=== PATIENT | male | born 1985 | race American Indian/Alaskan Native ===

== ENCOUNTER 2016-08-24 10:47 | Inpatient (IN) | payer OTHER ==
--- NOTE | 2016-08-24 11:17 | Emergency Department Report ---
Stated Complaint: CHEST PAIN LT ARM PAIN/HEADACHES/PRESSURE LT LEG Time Seen by Provider: 08/24/16 11:15 - HPI History of Present Illness: seen at [facility] for the same recently he reports l sided numbness and tingling; as well as sharp shooting pain also vague co epigastric pain neuro intact cn intact no pronator drift denies drugs or etoh no cp on exam vss. nad - Exam Vital Signs: Vital Signs 08/24/16 11:06 Temperature 98.1 F Pulse Rate 87 Respiratory 16 Rate Blood Pressure 134/89 O2 Sat by Pulse 97 Oximetry MSE screening note: Focused history and physical exam performed. Due to findings the following was ordered: ED Medical Decision Making - Lab Data Result diagrams: 08/24/16 11:06 08/24/16 11:40 ED Disposition for MSE Condition: Stable
[2016-08-24 11:51] LABS: Basophils % (Auto) 0.5 % (0.0-1.8); Eosinophils % (Auto) 4.6 % (0.0-4.3); Hematocrit 50.9 % (35.5-45.6); Hemoglobin 17.2 gm/dl (11.8-15.2); Mean Corpuscular HGB Conc 34 % (32-34); Mean Corpuscular Hemoglobin 30 pg (28-32); Mean Corpuscular Volume 89 fl (84-94); Platelet Count 221 K/mm3 (140-440); Red Blood Count 5.71 M/mm3 (3.65-5.03); Red Cell Distribution Width 13.5 % (13.2-15.2); White Blood Count 7.7 K/mm3 (4.5-11.0)
[2016-08-24 11:59] LABS: INR 1.12 (0.87-1.13)
[2016-08-24 12:00] LABS: Partial Thromboplastin Time 30.5 Sec. (24.2-36.6)
[2016-08-24 12:09] LABS: Alanine Aminotransferase 58 units/L (7-56); Albumin 4.2 g/dL (3.9-5); Albumin/Globulin Ratio 1.4 %; Alkaline Phosphatase 56 units/L (35-129); Anion Gap 16 mmol/L; BUN/Creatinine Ratio 9.09; Blood Urea Nitrogen 10 mg/dL (9-20); Calcium 8.9 mg/dL (8.4-10.2); Carbon Dioxide 26 mmol/L (22-30); Chloride 100.6 mmol/L (98-107); Glucose 96 mg/dL (75-100); Potassium 4.3 mmol/L (3.6-5.0); Sodium 138 mmol/L (137-145); Total Protein 7.3 g/dL (6.3-8.2)
--- NOTE | 2016-08-24 12:12 | XRay Report ---
ROUTINE CHEST, TWO VIEWS: HISTORY: chest pain. The trachea, heart, mediastinal contour, lung thomson and bony thorax are unremarkable. IMPRESSION: Unremarkable chest x-ray.
[2016-08-24] MEDS ORDERED: MORPHINE IV ONE (22:11)
[2016-08-24] MEDS ORDERED: NITRO-BID 2% TP ONE (22:11)
[2016-08-24] MEDS ORDERED: ZOFRAN IV ONE (22:11)
--- NOTE | 2016-08-24 22:20 | Emergency Department Report ---
HPI - General Chief Complaint: Chest Pain Time Seen by Provider: 08/24/16 22:01 - [facility] HPI: Room 26 The patient is a 31-year-old male presenting with a chief complaint of chest pain. The patient states his symptoms began 5 days ago with intermittent sharp substernal chest pain associated with pain in his left upper extremity as well as numbness in the left upper and lower extremity. The patient states all of his symptoms come together. Patient denies shortness of breath, nausea/ vomiting or diaphoresis. The patient states she is also had an intermittent headache. Patient currently gives his pain a score of 6-7/10. Patient states she's never had a stress test or cardiac catheterization Location: [see above] Duration: Intermittent 5 days Quality: Sharp Severity: 6-7/10 Modifying factors: [see above] Context: [see above] Mode of transportation: Unknown ED Past Medical Hx - Past Medical History Previous Medical History?: Yes Hx Asthma: Yes - Surgical History Past Surgical History?: Yes Additional Surgical History: Abdominal hernia, Polyp removed from nose - Family History Family history: no significant - Social History Smoking Status: Never Smoker Substance Use Type: None (denies illicit drug use), Alcohol (occasional) - Medications Home Medications: Home Medications Medication Instructions Recorded Confirmed Last Taken Type ALBUTEROL Inhaler [ProAir HFA 2 puff IH QID PRN #1 inha 08/02/13 Unknown Rx Inhaler] predniSONE [Deltasone] 50 mg PO QDAY #5 tab 08/02/13 Unknown Rx ED Review of Systems ROS: Stated complaint: CHEST PAIN LT ARM PAIN/HEADACHES/PRESSURE LT LEG Other details as noted in HPI Comment: All other systems reviewed and negative Constitutional: denies: chills, fever Eyes: denies: eye pain, eye discharge, vision change ENT: denies: ear pain, throat pain Respiratory: denies: cough, shortness of breath, wheezing Cardiovascular: chest pain Endocrine: no symptoms reported Gastrointestinal: denies: abdominal pain, nausea, diarrhea Genitourinary: denies: urgency, dysuria Musculoskeletal: denies: back pain, joint swelling, arthralgia Skin: denies: rash, lesions Neurological: headache, paresthesias Psychiatric: denies: anxiety, depression Hematological/Lymphatic: denies: easy bleeding, easy bruising Physical Exam - Physical Exam Vital Signs: Vital Signs 08/24/16 08/24/1608/24/17 11:06 20:44 20:51 Temperature 98.1 F Pulse Rate 87 65 73 Respiratory 16 17 20 Rate Blood Pressure 134/89 O2 Sat by Pulse 97 98 Oximetry 08/24/16 08/24/16 08/24/16 21:00 21:11 21:12 Temperature Pulse Rate 70 67 Respiratory 20 20 20 Rate Blood Pressure 129/76 129/76 O2 Sat by Pulse 98 97 97 Oximetry 08/24/16 21:21 Temperature Pulse Rate 78 Respiratory 15 Rate Blood Pressure 130/85 O2 Sat by Pulse 98 Oximetry Physical Exam: GENERAL: The patient is well-developed well-nourished male lying on stretcher not appearing to be in acute distress. [] HEENT: Normocephalic. Atraumatic. Extraocular motions are intact. Patient has moist mucous membranes. NECK: Supple. No meningitic signs are noted. Trachea midline CHEST/LUNGS: Clear to auscultation. There is no respiratory distress noted. HEART/CARDIOVASCULAR: Regular. There is no tachycardia. There is no gallop rub or murmur. ABDOMEN: Abdomen is soft, nontender. Patient has normal bowel sounds. There is no abdominal distention. SKIN: There is no rash. There is no edema. There is no diaphoresis. NEURO: The patient is awake, alert, and oriented. The patient is cooperative. The patient has no focal neurologic deficits. The patient has normal speech. Cranial nerves II through XII grossly intact, no drift. Normal sensation throughout MUSCULOSKELETAL: There is no evidence of acute injury. ED Course Vital Signs 08/24/16 08/24/16 08/24/16 11:06 20:44 20:51 Temperature 98.1 F Pulse Rate 87 65 73 Respiratory 16 17 20 Rate Blood Pressure 134/89 O2 Sat by Pulse 97 98 Oximetry 08/24/16 08/24/16 08/24/16 21:00 21:11 21:12 Temperature Pulse Rate 70 67 Respiratory 20 20 20 Rate Blood Pressure 129/76 129/76 O2 Sat by Pulse 98 97 97 Oximetry 08/24/16 21:21 Temperature Pulse Rate 78 Respiratory 15 Rate Blood Pressure 130/85 O2 Sat by Pulse 98 Oximetry ED Medical Decision Making - Lab Data Result diagrams: 08/24/16 11:06 08/24/16 11:40 Laboratory Tests 08/24/16 08/24/16 08/24/16 11:06 11:06 11:40 WBC 7.7 RBC 5.71 H Hgb 17.2 H Hct 50.9 H MCV 89 MCH 30 MCHC 34 RDW 13.5 Plt Count 221 Lymph % (Auto) 29.5 [place] % (Auto) 9.8 H Eos % (Auto) 4.6 H Baso % (Auto) 0.5 Lymph # 2.3 [place] # 0.8 Eos # 0.4 Baso # 0.0 Seg Neutrophils % 55.6 Seg Neutrophils # 4.3 PT 14.3 INR 1.12 APTT 30.5 Sodium 138 Potassium 4.3 Chloride 100.6 Carbon Dioxide 26 Anion Gap 16 BUN 10 Creatinine 1.1 Estimated GFR > 60 BUN/Creatinine Ratio 9.09 Glucose 96 Calcium 8.9 Total Bilirubin 0.50 AST 24 ALT 58 H Alkaline Phosphatase 56 Troponin T < 0.010 Total Protein 7.3 Albumin 4.2 Albumin/Globulin Ratio 1.4 08/24/16 17:46 WBC RBC Hgb Hct MCV MCH MCHC RDW Plt Count Lymph % (Auto) [place] % (Auto) Eos % (Auto) Baso % (Auto) Lymph # [place] # Eos # Baso # Seg Neutrophils % Seg Neutrophils # PT INR APTT Sodium Potassium Chloride Carbon Dioxide Anion Gap BUN Creatinine Estimated GFR BUN/Creatinine Ratio Glucose Calcium Total Bilirubin AST ALT Alkaline Phosphatase Troponin T < 0.010 Total Protein Albumin Albumin/Globulin Ratio - EKG Data -: EKG Interpreted by Me EKG shows normal: sinus rhythm Rate: normal - EKG Data When compared to previous EKG there are: changes noted 08/24/16 22:21 EKG #1 performed at 10:53 reveals normal sinus rhythm with essentially unchanged when compared to previous EKG dated 03/21/2010. EKG #2 performed at 17:35 now shows new biphasic T waves in leads V3, V4, V5. - Radiology Data Radiology results: report reviewed (CT head), image reviewed (chest x-ray, CT head) interpreted by me: Chest x-ray- no focal infiltrate, no pneumothorax CT head (read by radiologist) - chronic sinusitis. No acute intracranial abnormality - Differential Diagnosis ACS, TIA, ICH, anxiety Critical care attestation.: If time is entered above; I have spent that time in minutes in the direct care of this critically ill patient, excluding procedure time. ED Disposition Clinical Impression: Chest pain, T wave inversion in EKG, Left sided numbness Disposition: OP ADMIT IP TO THIS HOSP Is pt being admited?: Yes Does the pt Need Aspirin: Yes Condition: Fair Instructions: Chest Pain (ED) Referrals: PRIMARY CARE,MD [Primary Care Provider] - 3-5 Days Time of Disposition: 23:03 (hospitalist paged)
--- NOTE | 2016-08-24 22:44 | Cat Scan Report ---
FINAL REPORT PROCEDURE: CT HEAD/BRAIN WO CON TECHNIQUE: Computerized tomography of the head was performed without contrast material. HISTORY: headache left-sided numbness COMPARISON: No prior studies are available for comparison. FINDINGS: Skull and scalp: Normal. Paranasal sinuses: Mucosal thickening is noted involving bilateral ethmoid, bilateral sphenoid and right frontal sinuses. Bilateral maxillary sinuses also demonstrate mucosal thickening. Ventricles and subarachnoid spaces: Normal. Cerebrum: No evidence of hemorrhage, acute infarction or mass . Cerebellum and brainstem: No evidence of hemorrhage, acute infarction or mass. Vasculature: Normal. Comments: None. IMPRESSION: Chronic sinusitis No acute intracranial abnormality
[2016-08-24] MEDS ORDERED: ASPIRIN PO ONE (23:03)
[2016-08-25] MEDS ORDERED: NITROSTAT SL PRN (00:02)
[2016-08-25] MEDS ORDERED: MORPHINE IV PRN (00:06)
[2016-08-25] MEDS ORDERED: ZOFRAN IV PRN (00:07)
[2016-08-25] MEDS ORDERED: TYLENOL PO PRN (00:08)
--- NOTE | 2016-08-25 00:28 | History and Physical Report ---
History of Present Illness Date of examination: 08/25/16 Date of admission: 06/08 Chief complaint: Chief complaint is chest pain History of present illness: History of present illness, patient is a 31-year-old male who started having substernal and precordial chest pain going on for 5 days, pain was relieved with pain medications and was associated with headache or pain radiates to the left upper extremity with numbness in the left upper extremity and left lower extremity. There is no history of shortness of breath but no history of nausea vomiting, cough fever or chills Past History Past Medical History: GERD, other (ASTHMA) Past Surgical History: hernia repair (NOSE SURGERY), Other Social history: other (OCCASIONAL ALCOHOL INTAKE) Family history: no significant family history Medications and Allergies Allergies Allergy/AdvReac Type Severity Reaction Status Date / Time Penicillins Allergy Swelling Verified 08/02/13 20:13 Home Medications Medication Instructions Recorded Confirmed Last Taken Type ALBUTEROL Inhaler [ProAir HFA 2 puff IH QID PRN #1 inha 08/02/13 Unknown Rx Inhaler] predniSONE [Deltasone] 50 mg PO QDAY #5 tab 08/02/13 Unknown Rx Active Meds: Active Medications Acetaminophen (Tylenol) 650 mg PO Q4H PRN PRN Reason: For Pain/Fever/Headache Aspirin (Aspirin) 325 mg PO QDAY [facility] Heparin Sodium (Porcine) (Heparin) 5,000 unit SUB-Q Q12HR [facility] Morphine Sulfate (Morphine) 2 mg IV Q3H PRN PRN Reason: Pain, Moderate (4-6) Nitroglycerin (Nitrostat) 0.4 mg SL Q5M PRN PRN Reason: Chest Pain Nitroglycerin (Nitro-Bid 2%) 0.5 inch TP QIDNTG [facility] PRN Reason: Protocol Ondansetron HCl (Zofran) 4 mg IV Q6H PRN PRN Reason: Nausea And Vomiting Review of Systems Constitutional: no weight loss, no weight gain, no fever, no chills, no sweats, no night sweats, no anorexia, no fatigue, no weakness, no malaise, no lethargy, no chronic headaches, no poor appetite, no daytime sleepiness, no chronic pain Eyes: bilateral: other (NO BILATERAL EYE SYMPTOMS) Ears, nose, mouth and throat: no ear pain, no ear discharge, no tinnitis, no decreased hearing, no nose pain, no nasal congestion, no nasal discharge, no sinus pressure, no sinus pain, no bleeding gums, no dental pain, no mouth pain, no dysphagia, no hoarseness, no sore throat, no swelling in mouth, no swelling in throat, no odynophagia, no voice changes, no post-nasal drip, no headache, no vertigo, no pain front of neck, no neck fullness/pressure, no neck lump Cardiovascular: chest pain, no orthopnea, no palpitations, no rapid/irregular heart beat, no edema, no syncope, no lightheadedness, no shortness of breath, no dyspnea on exertion, no paroxysmal nocturnal dyspnea, no claudication, no phlebitis, no high blood pressure, no leg edema, no decreased exercise tolerance Respiratory: no cough with sputum, no excessive sputum, no hemoptysis, no shortness of breath, no congestion, no wheezing, no pleurisy, no pain, no pain on inspiration, no sleep apnea, no respiratory infections Gastrointestinal: no abdominal pain, no nausea, no vomiting, no diarrhea, no constipation, no change in bowel habits, no hematemesis, no melena, no hematochezia, no loss of appetite, no early satiety, no heartburn, no indigestion, no excessive gas, no jaundice, no dyspepsia/bloating, no early satiety Genitourinary Male: no dysuria, no hematuria, no flank pain, no discharge, no urinary frequency, no urinary hesitancy, no nocturia, no incontinence, no erectile dysfunction, no genital pain, no genital sores, no impotence, no decreased libido, no difficulties fathering child, no polyuria, no urinary retention, no kidney stones Rectal: no pain, no incontinence, no bleeding, no itching, no hemorrhoids, no discharge, no flatulence Musculoskeletal: arm numbness/tingling, leg numbness/tingling, no neck stiffness , no neck pain, no shooting arm pain, no low back pain, no shooting leg pain, no morning stiffness, no muscle weakness, no muscle cramps, no myalgias, no fractures, no loss of height, no prior amputations, no arthritis Integumentary: no rash, no pruritis, no redness, no sores, no wounds, no jaundice, no boils, no bullae, no lesions, no darkening of skin, no depigmentation, no acne, no dryness, no color changes, no brittle nails, no striae, no hirsutism, no foot/leg ulcers, no onychomycosis Neurological: no transient paralysis, no paralysis, no weakness, no parathesias , no numbness, no tingling, no seizures, no syncope, no tremors, no ataxia, no lack of coordination, no headaches, no migraines, no convulsions, no aphasia, no change in speech, no change in mentation, no confusion, no memory loss, no changes in smell/taste, no motor disturbance, no sensory deficit, no double vision, no loss of vision, no hearing difficulties, no burning pain, no paralysis, no spasticity Psychiatric: no anxiety, no memory loss, no change in sleep habits, no sleep disturbances, no insomnia, no hypersomnia, no change in appetite, no change in libido, no suicidal ideation, no depression, no hopelessness, no anhedonia, no anxiety attacks, no difficulties concentrating, no confusion, no irritability Endocrine: no cold intolerance, no heat intolerance, no polyphagia, no excessive thirst, no polydipsia, no polyuria, no nocturia, no excessive sweating , no flushing, no increase in ring/shoe/hat size, no proptosis, no deepening of the voice, no thyroid mass, no palpatations, no high blood sugars, no low blood sugars, no recent glucocorticoid use Hematologic/Lymphatic: no easy bruising, no easy bleeding, no lymphadenopathy, no lymphedema, no thrombophilia Allergic/Immunologic: no urticaria, no allergic rhinitis, no wheezing, no persistent infections, no anaphylaxis, no angioedema, no gluten intolerance, no seasonal allergies Exam - Constitutional Vitals: Temp Pulse Resp BP Pulse Ox 98.1 F 65 20 118/81 98 08/24/16 11:06 08/24/16 23:41 08/24/16 23:41 08/24/16 23:41 08/24/16 23:41 General appearance: Present: no acute distress - EENT Eyes: Present: PERRL, EOM intact. Absent: conjunctival injection, mydriasis ENT: hearing intact, clear oral mucosa, dentition normal, no hearing decreased, no poor dentition, no edentulous - Neck Neck: Present: supple, normal ROM. Absent: rigidity, enlarged thyroid, masses or JVD, carotid bruits - Respiratory Respiratory effort: normal - Cardiovascular Rhythm: regular Heart Sounds: Present: S1 & S2. Absent: gallop, systolic murmur, diastolic murmur, rub, click - Extremities Extremities: no ischemia, No edema Peripheral Pulses: within normal limits - Abdominal General gastrointestinal: Present: soft, non-tender, non-distended. Absent: tender, distended, absent bowel sounds, hepatomegaly, splenomegaly, mass Male genitourinary: Present: deferred - Rectal Rectal Exam: deferred - Integumentary Integumentary: Present: clear, warm, dry, normal turgor. Absent: erythema, jaundice, rash, clammy - Musculoskeletal Musculoskeletal: strength equal bilaterally - Psychiatric Psychiatric: appropriate mood/affect - Neurologic Neurologic: CNII-XII intact Results - Labs CBC & Chem 7: 08/24/16 11:06 08/24/16 11:40 Labs: Laboratory Last Values WBC 7.7 K/mm3 (4.5-11.0) 08/24/16 11:06 RBC 5.71 M/mm3 (3.65-5.03) H 08/24/16 11:06 Hgb 17.2 gm/dl (11.8-15.2) H 08/24/16 11:06 Hct 50.9 % (35.5-45.6) H 08/24/16 11:06 MCV 89 fl (84-94) 08/24/16 11:06 MCH 30 pg (28-32) 08/24/16 11:06 MCHC 34 % (32-34) 08/24/16 11:06 RDW 13.5 % (13.2-15.2) 08/24/16 11:06 Plt Count 221 K/mm3 (140-440) 08/24/16 11:06 Lymph % (Auto) 29.5 % (13.4-35.0) 08/24/16 11:06 [place] % (Auto) 9.8 % (0.0-7.3) H 08/24/16 11:06 Eos % (Auto) 4.6 % (0.0-4.3) H 08/24/16 11:06 Baso % (Auto) 0.5 % (0.0-1.8) 08/24/16 11:06 Lymph # 2.3 K/mm3 (1.2-5.4) 08/24/16 11:06 [place] # 0.8 K/mm3 (0.0-0.8) 08/24/16 11:06 Eos # 0.4 K/mm3 (0.0-0.4) 08/24/16 11:06 Baso # 0.0 K/mm3 (0.0-0.1) 08/24/16 11:06 Seg Neutrophils % 55.6 % (40.0-70.0) 08/24/16 11:06 Seg Neutrophils # 4.3 K/mm3 (1.8-7.7) 08/24/16 11:06 PT 14.3 Sec. (12.2-14.9) 08/24/16 11:06 INR 1.12 (0.87-1.13) 08/24/16 11:06 APTT 30.5 Sec. (24.2-36.6) 08/24/16 11:06 Sodium 138 mmol/L (137-145) 08/24/16 11:40 Potassium 4.3 mmol/L (3.6-5.0) 08/24/16 11:40 Chloride 100.6 mmol/L (98-107) 08/24/16 11:40 Carbon Dioxide 26 mmol/L (22-30) 08/24/16 11:40 Anion Gap 16 mmol/L 08/24/16 11:40 BUN 10 mg/dL (9-20) 08/24/16 11:40 Creatinine 1.1 mg/dL (0.8-1.5) 08/24/16 11:40 Estimated GFR > 60 ml/min 08/24/16 11:40 BUN/Creatinine Ratio 9.09 % 08/24/16 11:40 Glucose 96 mg/dL (75-100) 08/24/16 11:40 Calcium 8.9 mg/dL (8.4-10.2) 08/24/16 11:40 Total Bilirubin 0.50 mg/dL (0.1-1.2) 08/24/16 11:40 AST 24 units/L (5-40) 08/24/16 11:40 ALT 58 units/L (7-56) H 08/24/16 11:40 Alkaline Phosphatase 56 units/L (35-129) 08/24/16 11:40 Troponin T < 0.010 ng/mL (0.00-0.029) 08/24/16 17:46 Total Protein 7.3 g/dL (6.3-8.2) 08/24/16 11:40 Albumin 4.2 g/dL (3.9-5) 08/24/16 11:40 Albumin/Globulin Ratio 1.4 % 08/24/16 11:40 Assessment and Plan - Patient Problems (1) Chest pain Current Visit: Yes Status: Acute Qualifiers: Chest pain type: C Ischemic chest pain type: I Plan to address problem: Patient will be admitted to medical floor on telemetry using chest pain protocol and will have cardiac enzyme checked every 6 hours 2 more levels patient will be on Nitropaste half inch to anterior chest wall 6 hours and will be on IV morphine 2 mg every 8 hours as needed for pain. Patient will be on IV Zofran 4 mg every 6 hours as needed for nausea vomiting and Tylenol 650 mg by mouth every 4 hours for fever or headache patient will have lexican stress test in the morning and will be on aspirin 325 mg by mouth daily, as well as oxygen by nasal cannula at 2 L/m (2) Left sided numbness Current Visit: Yes Status: Acute
[2016-08-25] MEDS: NITRO-BID 2% TP SCH ×3 (01:30→13:03)
[2016-08-25] MEDS ORDERED: LEXISCAN IV ONE ×2 (08:02→08:05)
--- NOTE | 2016-08-25 09:27 | Admit Criteria Form ---
Admission Criteria Documentation: CHEST PAIN Clinical Indications for Admission to Inpatient Care (Place 'X' for any and all applicable criteria): Admission is indicated for chest pain and ANY ONE of the following(1)(2)(3)(4)(5 ): [ ]I. Angina with acute coronary syndrome (Also use Myocardial Infarction or Angina guideline) [ ]II. Hemodynamic instability [ ]III. Angina needing acute intervention as indicated by ALL of the following( 11)(12): [ ]a) Unstable angina is present as indicated by angina that is ANY ONE of the following: [ ]i) New onset [ ]ii) Nocturnal [ ]iii) Prolonged at rest [ ]iv) Progressive [ ]b) Angina warrants acute intervention as indicated by ANY ONE of the following: [ ]i) Recurrent angina (e.g, not responding as previously to treatment) [ ]ii) Angina at rest or with low-level activities despite initial medical therapy [ ]iii) New or presumably new ST-segment depression on ECG [ ]iv) Signs or symptoms of heart failure (eg, dyspnea, pulmonary edema) [ ]v) New or worsening mitral regurgitation [ ]vi) Hemodynamic instability [ ]vii) Dangerous arrhythmia (eg, sustained ventricular tachycardia) [ ]viii) History of percutaneous coronary intervention within 6 months [ ]ix) History of coronary artery bypass graft surgery [ ]x) KELSI risk score of 2 or greater[A] [ ]xi) History of Diabetes(14) [ ]xii) High-risk cardiac ischemia findings on noninvasive testing (e.g, echocardiogram, treadmill testing, nuclear scan) [ ]xiii) Chronic renal insufficiency (ie, estimated GFR less than 60 mL/min/1.732m) [ ]xiv) Left ventricular ejection fraction less than 40% [ ]IV. Evidence of SD (eg, cardiac biomarkers positive, ST-segment elevation on ECG) also use Myocardial Infarction Criteria Form. [ ]V. Pulmonary edema [ ]. Respiratory distress [X]VII. Chest pain indicative of serious diagnosis other than coronary artery disease (eg, aortic dissection) [ ]VIII. Contraindications and/or Inappropriate clinical situations for Observational Care in patients with Chest Pain, when ANY ONE of the following is required: [ ]a) Patient with risk factor for pulmonary embolism, acute coronary syndrome and myocardial infarction (18) [ ]b) Patient with Pulmonary embolism require an average LOS of 4.3 days, therefore emergency department observation management is inappropriate 18,23 [ ]c) Painful condition/s in the elderly, have the highest rate of recidivism after emergency department observation management (10.8%) 20,21,22 [ ]d) Elevated cardiac biomarker requires intensive and exhaustive care (19) [ ]IX. General contraindications and/or Inappropriate clinical situations for Observational Care in patients with Chest Pain, when ANY ONE of the following is required: [ ]a) Prediction of prolongation of LOS based on ANY ONE of the following may be considered as a contraindication for observational care 2, 3, 4, 5, 6, 7, 8, 9, 10, 11 [ ]i) Age > 65 yrs. [ ]ii) Patient arriving by ambulance [ ]iii) Patient with high acuity [ ]iv) Patient requiring vital sign monitoring [ ]v) Patient on IV medication [ ]b) Systolic blood pressures 180mmHg 3,12 [ ]c) Patient with altered mental status including delirium and other alteration of consciousness, (3) [ ]d) Patient whose discharge disposition will be to a [facility] home or rehabilitation home should not be managed in Emergency Department Observation Unit. CMS rule requires 3 days hospital stay before such placement. 3,13 [ ]e) Patient with failure to thrive due to broad array of etiologies 3,16,17 [ ]f) Inability to ambulate 3,14 Extended stay beyond goal length of stay may be needed for (1)(28): [ ]a) Specific condition diagnosed after evaluation (eg, pulmonary embolism, aortic dissection) [ ]b) Unstable angina [ ]c) Continued suspicion of acute coronary syndrome with inability to complete needed cardiac evaluation (eg, patient clinically unable to undergo stress testing) [ ]d) Myocardial infarction (Contents from ANGINA and CHEST PAIN clinical indications for admission to inpatient care have been integrated in this form) The original [employer] [facility] content created by [employer] ( [employer] ) has been revised. The portions of the content which have been revised are identified through the use of italic text or in bold, and [employer] [facility] has neither reviewed nor approved the modified material. All other unmodified content is copyright [employer] [facility]. Please see references footnoted in the original [employer] [facility] [facility] edition 2016 Admission Criteria Met: Yes
[2016-08-25] MEDS ORDERED: ASPIRIN PO SCH (10:00)
[2016-08-25] MEDS ORDERED: HEPARIN SUB-Q SCH (10:00)
[2016-08-25] MEDS ORDERED: PROAIR IH PRN (10:09)
--- NOTE | 2016-08-25 10:12 | Discharge Summary ---
Providers - Providers Date of Admission: 08/25/16 00:01 Attending physician: CHERELLE ROBERTSON MD Primary care physician: YARN EXAMINER SKEINS Hospitalization Condition: Fair Hospital course: 31-year-old man with a past medical history mild intermittent asthma who was admitted for chest pain, he admitted to lifting heavy weights the day prior, as he is active and is body building. Acute coronary syndrome was ruled out by negative troponins, he then went on to have a stress test that showed no signs of ischemia on prelim result. Discharge diagnoses Chest pain due to musculoskeletal origin Chronic mild intermittent asthma. Disposition: DC- TO HOME OR SELFCARE Time spent for discharge: 33 minutes Core Measure Documentation - Palliative Care Palliative Care/ Comfort Measures: Not Applicable - Core Measures Any of the following diagnoses?: none Exam - Constitutional Vitals: Temp Pulse Resp BP Pulse Ox 97.8 F 77 18 115/66 94 08/25/16 05:39 08/25/16 05:39 08/25/16 05:39 08/25/16 05:39 08/25/16 05:39 General appearance: Present: no acute distress, well-nourished - EENT Eyes: Present: PERRL ENT: hearing intact, clear oral mucosa - Neck Neck: Present: supple, normal ROM - Respiratory Respiratory effort: normal Respiratory: bilateral: CTA - Cardiovascular Heart Sounds: Present: S1 & S2. Absent: rub, click - Extremities Extremities: pulses symmetrical, No edema Peripheral Pulses: within normal limits - Abdominal General gastrointestinal: Present: soft, non-tender, non-distended, normal bowel sounds Male genitourinary: Present: normal - Integumentary Integumentary: Present: clear, warm, dry - Musculoskeletal Musculoskeletal: gait normal, strength equal bilaterally - Psychiatric Psychiatric: appropriate mood/affect, intact judgment & insight - Neurologic Neurologic: CNII-XII intact, moves all extremities Plan Follow up with: PRIMARY CARE, [Primary Care Provider] - 3-5 Days Prescriptions: ALBUTEROL Inhaler [ProAir HFA Inhaler] 2 puff IH QID PRN #1 inha PRN Reason: Shortness Of Breath
[2016-08-25] MEDS ORDERED: PROVENTIL IH PRN (10:19)
[2016-08-25 14:32] VITALS: BP 141/64
== END 2016-08-25 14:39 | disposition home or self-care (01) | DRG 556 ==
LOC: ED 10:47 → 4A 08-25 00:01
PROVIDERS: ADMIT Internal Medicine; ATTEND Internal Medicine
DX: M79.1 Myalgia (principal); R07.9 Chest pain, unspecified; J45.20 Mild intermittent asthma, uncomplicated; K21.9 Gastro-esophageal reflux disease without esophagitis; Z88.0 Allergy status to penicillin; Z72.89 Other problems related to lifestyle; Z98.890 Other specified postprocedural states
CPT/HCPCS: 36415; 70450; 71020; 78452; 80053; 84484; 85025; 85610; 85730; 93005; 93010; 93017; A9502; J2270; J2405; J2785

== ENCOUNTER 2018-07-30 23:24 | Emergency (ER) | payer OTHER ==
[2018-07-31 00:29] LABS: Basophils # (Auto) 0.2 K/mm3 (0.0-0.1); Basophils % (Auto) 2.2 % (0.0-1.8); Eosinophils # (Auto) 0.6 K/mm3 (0.0-0.4); Eosinophils % (Auto) 8.2 % (0.0-4.3); Hematocrit 43.6 % (35.5-45.6); Lymphocytes # (Auto) 2.1 K/mm3 (1.2-5.4); Lymphocytes % (Auto) 28.6 % (13.4-35.0); Mean Corpuscular HGB Conc 35 % (32-34); Mean Corpuscular Volume 90 fl (84-94); Monocytes # (Auto) 0.7 K/mm3 (0.0-0.8); Monocytes % (Auto) 9.2 % (0.0-7.3); Platelet Count 286 K/mm3 (140-440); Red Blood Count 4.83 M/mm3 (3.65-5.03)
[2018-07-31 00:44] LABS: BUN/Creatinine Ratio 17; Blood Urea Nitrogen 20 mg/dL (9-20); Calcium 8.8 mg/dL (8.4-10.2); Hemolysis Index 24
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
[2018-07-31 02:24] VITALS: BP 120/69
== END 2018-07-31 02:25 | disposition home or self-care (01) ==
LOC: ED 23:24
DX: R51 Headache (principal); R42 Dizziness and giddiness; J45.909 Unspecified asthma, uncomplicated; Z88.0 Allergy status to penicillin
CPT/HCPCS: 36415; 70450; 80048; 85025; 93005; 93010; 99284

== ENCOUNTER 2018-10-28 01:06 | Emergency (ER) | payer OTHER ==
[2018-10-28 03:51] LABS: Basophils # (Auto) 0.1 K/mm3 (0.0-0.1); Basophils % (Auto) 0.7 % (0.0-1.8); Eosinophils # (Auto) 0.6 K/mm3 (0.0-0.4); Eosinophils % (Auto) 8.5 % (0.0-4.3); Hematocrit 50.4 % (35.5-45.6); Hemoglobin 17.2 gm/dl (11.8-15.2); Lymphocytes # (Auto) 2.5 K/mm3 (1.2-5.4); Lymphocytes % (Auto) 33.5 % (13.4-35.0); Mean Corpuscular HGB Conc 34 % (32-34); Mean Corpuscular Volume 89 fl (84-94); Monocytes # (Auto) 0.7 K/mm3 (0.0-0.8); Monocytes % (Auto) 9.1 % (0.0-7.3); Platelet Count 234 K/mm3 (140-440); Red Blood Count 5.69 M/mm3 (3.65-5.03)
[2018-10-28 04:20] LABS: BUN/Creatinine Ratio 10; Blood Urea Nitrogen 12 mg/dL (9-20); Calcium 9.1 mg/dL (8.4-10.2); Hemolysis Index 14
[2018-10-28] MEDS ORDERED: PEPCID PO ONE (04:45)
[2018-10-28] MEDS ORDERED: ALUM-MAG HYDROX-SIMETH 200-200-20MG/5ML PO ONE (04:45)
[2018-10-28] MEDS ORDERED: LIDOCAINE VISCOUS 2% PO ONE (04:45)
[2018-10-28] MEDS ORDERED: TYLENOL PO ONE (04:45)
--- NOTE | 2018-10-28 05:27 | Emergency Department Report ---
ED General Adult HPI - General Chief complaint: Weakness Stated complaint: GENERAL WEAKNESS Source: patient Mode of arrival: Ambulatory Limitations: No Limitations - History of Present Illness Initial comments: Patient is a 33-year-old Citizen Of [place] male with a history of chronic headaches and GERD who presents to ED with acute onset of persistent epigastric burning pain and a headache for the last 2 days, worse in the last 4 hours. Patient denies chest pain, shortness of breath, dizziness, syncope, nausea, vomiting, change in vision, fever, chills, cough, diarrhea, sore throat, numbness and tingling or weakness of lower extremities bilaterally. MD Complaint: headache, epigastric pain -: Sudden, days(s) (2) Location: head, abdomen Radiation: non-radiation Severity scale (0 -10): 3 Quality: burning, aching Consistency: constant Improves with: none Worsens with: none Associated Symptoms: denies other symptoms, headaches. denies: confusion, chest pain, cough, diaphoresis, fever/chills, loss of appetite, malaise, nausea/v omiting, rash, seizure, shortness of breath, syncope, weakness Treatments Prior to Arrival: none - Related Data Previous Rx's Medication Instructions Recorded Last Taken Type ALBUTEROL Inhaler (OR & NICU) 2 puff IH QID PRN #1 inha 08/25/16 Unknown Rx [ProAir HFA Inhaler] Meclizine [Antivert] 25 mg PO TID PRN #20 tablet 07/31/18 Unknown Rx Butalb/Acetamin/Caff 50-325-40 1 tab PO Q8HR PRN #10 tablet 10/28/18 Unknown Rx [Fioricet 50-325-40] hydrOXYzine PAMOATE [Vistaril] 25 mg PO Q6HR PRN #30 capsule 10/28/18 Unknown Rx raNITIdine HCl [Zantac] 150 mg PO Q12H #30 tablet 10/28/18 Unknown Rx Allergies Allergy/AdvReac Type Severity Reaction Status Date / Time Penicillins Allergy Swelling Verified 08/02/13 20:13 ED Review of Systems ROS: Stated complaint: GENERAL WEAKNESS Other details as noted in HPI Constitutional: denies: chills, fever Eyes: denies: eye pain, eye discharge, vision change ENT: denies: ear pain, throat pain Respiratory: denies: cough, shortness of breath, wheezing Cardiovascular: denies: chest pain, palpitations Endocrine: no symptoms reported Gastrointestinal: abdominal pain. denies: nausea, diarrhea Genitourinary: denies: urgency, dysuria Musculoskeletal: denies: back pain, joint swelling, arthralgia Skin: denies: rash, lesions Neurological: headache. denies: weakness, paresthesias Psychiatric: denies: anxiety, depression Hematological/Lymphatic: denies: easy bleeding, easy bruising ED Past Medical Hx - Past Medical History Previous Medical History?: Yes Hx Asthma: Yes - Surgical History Past Surgical History?: Yes Additional Surgical History: Abdominal hernia, Polyp removed from nose - Social History Smoking Status: Never Smoker Substance Use Type: None, Alcohol - Medications Home Medications: Home Medications Medication Instructions Recorded Confirmed Last Taken Type ALBUTEROL Inhaler (OR & NICU) 2 puff IH QID PRN #1 inha 08/25/16 Unknown Rx [ProAir HFA Inhaler] Meclizine [Antivert] 25 mg PO TID PRN #20 tablet 07/31/18 Unknown Rx Butalb/Acetamin/Caff 50-325-40 1 tab PO Q8HR PRN #10 tablet 10/28/18 Unknown Rx [Fioricet 50-325-40] hydrOXYzine PAMOATE [Vistaril] 25 mg PO Q6HR PRN #30 capsule 10/28/18 Unknown Rx raNITIdine HCl [Zantac] 150 mg PO Q12H #30 tablet 10/28/18 Unknown Rx ED Physical Exam - General Limitations: No Limitations General appearance: alert, in no apparent distress - Head Head exam: Present: atraumatic, normocephalic, normal inspection - Eye Eye exam: Present: normal appearance, PERRL, EOMI Pupils: Present: normal accommodation - ENT ENT exam: Present: normal exam, normal orophraynx, mucous membranes moist, TM's normal bilaterally, normal external ear exam - Neck Neck exam: Present: normal inspection, full ROM - Respiratory Respiratory exam: Present: normal lung sounds bilaterally. Absent: respiratory distress, wheezes, rales, chest wall tenderness, accessory muscle use, decreased breath sounds - Cardiovascular Cardiovascular Exam: Present: regular rate, normal rhythm, normal heart sounds. Absent: systolic murmur, diastolic murmur, rubs, gallop - GI/Abdominal GI/Abdominal exam: Present: soft, normal bowel sounds. Absent: distended, tenderness, guarding, hyperactive bowel sounds, hypoactive bowel sounds, organomegaly - Rectal Rectal exam: Present: deferred - Extremities Exam Extremities exam: Present: normal inspection, full ROM, normal capillary refill - Back Exam Back exam: Present: normal inspection, full ROM. Absent: tenderness, CVA tenderness (R), CVA tenderness (L), paraspinal tenderness - Neurological Exam Neurological exam: Present: alert, oriented X3, CN II-XII intact, normal gait, reflexes normal - Psychiatric Psychiatric exam: Present: normal affect, normal mood - Skin Skin exam: Present: warm, dry, intact, normal color. Absent: rash ED Course Vital Signs 10/28/18 01:14 Temperature 97.9 F Pulse Rate 93 H Respiratory 14 Rate Blood Pressure 151/83 O2 Sat by Pulse 98 Oximetry - Reevaluation(s) Reevaluation #1: 10/28/18 05:28 Patient is alert and oriented 3 and is not in distress but anxious. Lab test results were reviewed and are all unremarkable. Patient was treated for GERD and headache in the ED. On reevaluation, patient's symptoms improved significantly and the patient will discharged home on medications and advised to follow-up with his primary care physician in 7-10 days for reevaluation or return to the ED immediately if symptoms get worse. ED Medical Decision Making - Lab Data Result diagrams: 10/28/18 03:41 10/28/18 03:41 - Medical Decision Making Patient is alert and oriented 3 and is not in distress but anxious. Lab test results were reviewed and are all unremarkable. Patient was treated for GERD and headache in the ED. On reevaluation, patient's symptoms improved significantly and the patient will discharged home on medications and advised to follow-up with his primary care physician in 7-10 days for reevaluation or return to the ED immediately if symptoms get worse. - Differential Diagnosis GERD; Tension headache; anxiety Critical care attestation.: If time is entered above; I have spent that time in minutes in the direct care of this critically ill patient, excluding procedure time. ED Disposition Clinical Impression: Anxiety as acute reaction to exceptional stress GERD (gastroesophageal reflux disease) Qualifiers: Esophagitis presence: without esophagitis Qualified Code(s): K21.9 - Gastro- esophageal reflux disease without esophagitis Tension type headache Qualifiers: Headache chronicity pattern: acute headache Intractability: not intractable Qualified Code(s): G44.209 - Tension-type headache, unspecified, not intractable Disposition: DC- TO HOME OR SELFCARE Is pt being admited?: No Does the pt Need Aspirin: No Condition: Stable Instructions: Gastroesophageal Reflux Disease (ED), Generalized Anxiety Disorder (ED), Tension Headache (ED) Additional Instructions: Take medications with food, drink plenty of fluids and follow-up with your primary care physician in 7-10 days for reevaluation. Return to the ED immediately if symptoms get worse. Prescriptions: Butalb/Acetamin/Caff 50-325-40 [Fioricet 50-325-40] 1 tab PO Q8HR PRN #10 tablet PRN Reason: Headache hydrOXYzine PAMOATE [Vistaril] 25 mg PO Q6HR PRN #30 capsule PRN Reason: Anxiety raNITIdine HCl [Zantac] 150 mg PO Q12H #30 tablet Referrals: PRIMARY CARE, [Primary Care Provider] - 3-5 Days Time of Disposition: 05:24 Print Language: SETSWANA
[2018-10-28 05:48] VITALS: BP 148/80
== END 2018-10-28 05:46 | disposition home or self-care (01) ==
LOC: ED 01:06
DX: K21.9 Gastro-esophageal reflux disease without esophagitis (principal); G44.209 Tension-type headache, unspecified, not intractable; F41.9 Anxiety disorder, unspecified; J45.909 Unspecified asthma, uncomplicated
CPT/HCPCS: 36415; 80048; 85025

== ENCOUNTER 2020-03-07 00:22 | Emergency (ER) | payer OTHER ==
[2020-03-07 00:46] VITALS: BP 140/83
[2020-03-07] MEDS ORDERED: ONDANSETRON 4 MG ODT TAB PO ONE (01:12)
[2020-03-07] MEDS ORDERED: IBUPROFEN 600 MG TAB PO ONE (01:12)
--- NOTE | 2020-03-07 01:17 | Emergency Department Report ---
ED Headache HPI - General Chief Complaint: Headache Stated Complaint: HEADACHE Source: patient Exam Limitations: no limitations - History of Present Illness Initial Comments: Patient is a 34-year-old -N[place]ien male with a history of asthma, GERD and previous head injury who presents to the ED with complaint of acute onset persistent frontal sinus pressure and headache that radiates to the parietal scalp for the last 2 weeks. Patient states that he has been taking nvfq-[id number] medications for pain with no relief. Patient denies nausea, vomiting, neck pain, change in vision, seizures, syncope, chest pain, shortness of breath, traumatic injury, fall, heavy lifting, cough, nasal and sinus congestion, fever and chills. Timing/Duration: 1 week (2 weeks), episodic, waxing and waning Quality: severe, pressure, sharp, throbbing Head Injury Location: frontal, parietal Recent Head Trauma: no recent headache/trauma Modifying Factors: improves with: medication Associated Symptoms: denies symptoms, sinus infection. denies: confusion, fatigue, facial pain, fever/chills, flushing, loss of consciousness, nausea/vomiting, nasal congestion, nasal drainage, numbness in legs/feet, seizures, stiff neck, vision changes, weakness Allergies/Adverse Reactions: Allergies Penicillins Allergy (Verified 08/02/13 20:13) Swelling Home Medications: Ambulatory Orders Albuterol Mdi (or & Nicu Only) [ProAir HFA Inhaler] 2 puff IH QID PRN #1 inha 08/25/16 Meclizine [Antivert] 25 mg PO TID PRN #20 tablet 07/31/18 Butalb/Acetamin/Caff 50-325-40 [Fioricet 50-325-40] 1 tab PO Q8HR PRN #10 tablet 10/28/18 hydrOXYzine PAMOATE [Vistaril] 25 mg PO Q6HR PRN #30 capsule 10/28/18 raNITIdine HCL [Zantac] 150 mg PO Q12H #30 tablet 10/28/18 Butalb/Acetamin/Caff 50-325-40 [Fioricet 50-325-40] 1 - 2 tab PO Q6HR PRN #15 tab 03/07/20 Doxycycline Hyclate 100 mg PO Q12H #20 tablet. 03/07/20 Ibuprofen [Motrin] 800 mg PO Q8HR PRN #30 tablet 03/07/20 ED Review of Systems ROS: Stated complaint: HEADACHE Other details as noted in HPI Constitutional: denies: chills, fever Eyes: denies: eye pain, eye discharge, vision change ENT: other (frontal sinus pressure). denies: ear pain, throat pain Respiratory: denies: cough, shortness of breath, wheezing Cardiovascular: denies: chest pain, palpitations Endocrine: no symptoms reported Gastrointestinal: denies: abdominal pain, nausea, diarrhea Genitourinary: denies: urgency, dysuria Musculoskeletal: denies: back pain, joint swelling, arthralgia Skin: denies: rash, lesions Neurological: headache (Frontal ). denies: weakness, paresthesias Psychiatric: denies: anxiety, depression Hematological/Lymphatic: denies: easy bleeding, easy bruising ED Past Medical Hx - Past Medical History Previous Medical History?: Yes Hx GERD: Yes Hx Asthma: Yes - Surgical History Past Surgical History?: Yes Additional Surgical History: Abdominal hernia, Polyp removed from nose - Social History Smoking Status: Never Smoker Substance Use Type: Alcohol - Medications Home Medications: Home Medications Medication Instructions Recorded Confirmed Last Taken Type Albuterol Mdi (or & Nicu Only) 2 puff IH QID PRN #1 inha 08/25/16 Unknown Rx [ProAir HFA Inhaler] Meclizine [Antivert] 25 mg PO TID PRN #20 tablet 07/31/18 Unknown Rx Butalb/Acetamin/Caff 50-325-40 1 tab PO Q8HR PRN #10 tablet 10/28/18 Unknown Rx [Fioricet 50-325-40] hydrOXYzine PAMOATE [Vistaril] 25 mg PO Q6HR PRN #30 capsule 10/28/18 Unknown Rx raNITIdine HCL [Zantac] 150 mg PO Q12H #30 tablet 10/28/18 Unknown Rx Butalb/Acetamin/Caff 50-325-40 1 - 2 tab PO Q6HR PRN #15 tab 03/07/20 Unknown Rx [Fioricet 50-325-40] Doxycycline Hyclate 100 mg PO Q12H #20 tablet. 03/07/20 Unknown Rx Ibuprofen [Motrin] 800 mg PO Q8HR PRN #30 tablet 03/07/20 Unknown Rx ED Physical Exam - General Limitations: No Limitations General appearance: alert, in no apparent distress - Head Head exam: Present: atraumatic, normocephalic, normal inspection - Eye Eye exam: Present: normal appearance, PERRL, EOMI Pupils: Present: normal accommodation - ENT ENT exam: Present: normal exam, normal orophraynx, mucous membranes moist, TM's normal bilaterally, normal external ear exam, other (Palpable frontal sinus tenderness) - Neck Neck exam: Present: normal inspection, full ROM - Respiratory Respiratory exam: Present: normal lung sounds bilaterally. Absent: respiratory distress, wheezes, rhonchi, chest wall tenderness, accessory muscle use, prolonged expiratory - Cardiovascular Cardiovascular Exam: Present: regular rate, normal rhythm, normal heart sounds. Absent: systolic murmur, diastolic murmur, rubs, gallop - GI/Abdominal GI/Abdominal exam: Present: soft, normal bowel sounds. Absent: distended, tenderness, guarding, rebound, hyperactive bowel sounds, hypoactive bowel sounds, organomegaly - Extremities Exam Extremities exam: Present: normal inspection, full ROM, normal capillary refill - Back Exam Back exam: Present: normal inspection, full ROM. Absent: tenderness, CVA tenderness (R), CVA tenderness (L), muscle spasm, paraspinal tenderness, vertebral tenderness - Neurological Exam Neurological exam: Present: alert, oriented X3, CN II-XII intact, normal gait, reflexes normal - Psychiatric Psychiatric exam: Present: normal affect, normal mood - Skin Skin exam: Present: warm, dry, intact, normal color. Absent: rash ED Course Vital Signs 03/07/20 00:40 Temperature 97.6 F Pulse Rate 87 Respiratory 18 Rate Blood Pressure 140/83 O2 Sat by Pulse 100 Oximetry ED Medical Decision Making - Medical Decision Making This is a 34-year-old -[place] male with a history of asthma, GERD and previous head injury who presents to the ED with complaint of acute onset persistent frontal sinus pressure and headache that radiates to the parietal scalp for the last 2 weeks. Patient states that he has been taking [id number] medications for pain with no relief. In the ED, patient is alert and oriented x3 and is not in distress. Patient is hemodynamically stable. Patient was treated for headache in the ED, and on reevaluation, patient's pain is well controlled medications. Patient was discharged home on pain medications and advised to follow-up with his primary care physician in 5 to 7 days for reevaluation or return to the ED immediately if symptoms get worse. - Differential Diagnosis Migraine headache; sinus headache; sinusitis; cluster headache; anxiety Critical care attestation.: If time is entered above; I have spent that time in minutes in the direct care of this critically ill patient, excluding procedure time. ED Disposition Clinical Impression: Sinus headache Acute frontal sinusitis Qualifiers: Recurrence: non-recurrent Qualified Code(s): J01.10 - Acute frontal sinusitis, unspecified Disposition: DC- TO HOME OR SELFCARE Is pt being admited?: No Does the pt Need Aspirin: No Condition: Stable Instructions: Sinusitis, Adult, [id number], Sinus Headache, [id number] Additional Instructions: Take medications with food, drink plenty of fluids and follow up with your Primary Care Physician in 7-10 days for reevaluation. Return to the ED immediately if symptoms get worse Prescriptions: Doxycycline Hyclate 100 mg PO Q12H #20 tablet.dr Long/Acetamin/Caff 50-325-40 [Fioricet 50-325-40] 1 - 2 tab PO Q6HR PRN #15 tab PRN Reason: Headache Ibuprofen [Motrin] 800 mg PO Q8HR PRN #30 tablet PRN Reason: Pain , Severe (7-10) Referrals: [facility] [Provider Group] - 7-10 days Time of Disposition: 01:15 Print Language: ROMANIAN
[2020-03-07] MEDS ORDERED: BUTALB/ACETAMINOPHEN/CAFFEINE TAB PO ONE (01:32)
== END 2020-03-07 01:50 | disposition home or self-care (01) ==
LOC: ED 00:22
DX: J01.10 Acute frontal sinusitis, unspecified (principal); R51.9 Headache, unspecified; K21.9 Gastro-esophageal reflux disease without esophagitis; J45.909 Unspecified asthma, uncomplicated; Z98.890 Other specified postprocedural states; Z79.899 Other long term (current) drug therapy; Z88.0 Allergy status to penicillin
CPT/HCPCS: 99282; Q0162

== ENCOUNTER 2020-03-20 16:16 | Emergency (ER) | payer OTHER ==
[2020-03-20 16:28] VITALS: BP 140/84
--- NOTE | 2020-03-20 16:28 | Emergency Department Report ---
Stated Complaint: REACTION FROM MEDICATION Time Seen by Provider: 03/20/20 16:27 - HPI History of Present Illness: Patient is a pleasant 34-year-old male that comes to the emergency room after being treated at [facility] today. He had gone to [facility] for headaches. He had a CT scan of his head and it was normal. They gave him Compazine for his nausea and he was dizzy and felt funny. That is why he came to the ER at [facility]. By the time he got here he was feeling better and realized, agreed with what he was told at [facility] that he was reacting to the medication. He denies chest pain or shortness of breath. He denies fever or chills. He is ambulatory nontoxic and [id number] on triage - ROS Review of Systems: None at this time - Exam Vital Signs: Vital Signs 03/20/20 16:25 Temperature 97 F L Pulse Rate 99 H Respiratory 18 Rate Blood Pressure 140/84 O2 Sat by Pulse 98 Oximetry Physical Exam: Alert and oriented x4. No focal deficit. S1-S2. Lungs clear to auscultation Abdomen soft nontender no CVA tenderness MSE screening note: Focused history and physical exam performed. Due to findings the following was ordered: Patient has no life-threatening emergency. He has just left [facility] where he had an extensive work-up including blood work and head CT. I reviewed the record with patient, that they had given him. Discussed with patient side effects of medications. Patient MSE to home with PCP follow-up Patient discussed with doctor:: LOBO GARCÍA ED Disposition for MSE Disposition: MED SCREENING EXAM-LEFT Is pt being admited?: No Does the pt Need Aspirin: No Condition: Stable Time of Disposition: 16:46
== END 2020-03-20 16:30 | disposition left against medical advice (07) ==
LOC: ED 16:16
DX: R51.9 Headache, unspecified (principal); Z53.21 Procedure and treatment not carried out due to patient leaving prior to being seen by health care provider